=== PATIENT | male | born 1980 | race Caucasian/White ===

== ENCOUNTER 2017-01-05 10:59 | Emergency (ER) | payer OTHER ==
[~2017-01-05] VITALS: Ht 177.8 cm; Wt 97.7 kg
[~2017-01-05 10:59] MED LIST: ATEN50TA PO; CITA40TA13 PO; OMEP40CA3 PO; RNT300T PO
[2017-01-05 11:03] VITALS: BP 130/82; PULSE 79; RESP 10; O2SAT 99
--- NOTE | 2017-01-05 11:46 | ED.REPORT ---
HPI-Back Pain Under 40 Date of Service Jan 05, 2017 ED Provider: Yohannes Hobson PA-C Niko is a 36-year-old male presents with chief complaint of lower back pain. He reports a history of L3 4 5 fusion 7 months ago. He states that last night he was moving several boxes at home. he notices increased pain as well as shooting pains into his right leg this morning. Denies saddle anesthesia, bowel /bladder dysfunction. Denies fever, chills, diabetes, or transplant, immunosuppression, recent infection, IV drug use, cancer. Denies abdominal pain , urinary symptoms. Reports a history of Crohn's disease which limits his use of NSAIDs as well as hypertension, GERD. He is not taking anything for pain today. He has Percocet at home. Nursing Notes Stated Complaint: BACK PAIN Chief Complaint: Back Pain or Injury Nursing Notes Reviewed: Yes Allergies: Coded Allergies: codeine (Verified Allergy, Unknown, 04/16/15) Scheduled Atenolol (Atenolol) 50 Mg Tablet 50 MG PO DAILY Citalopram (Citalopram) 40 Mg Tablet 40 MG PO DAILY Omeprazole (Prilosec) 40 Mg Capsule.dr 40 MG PO DAILY Prednisone (PredniSONE) 20 Mg Tablet 40 MG PO DAILY Ranitidine (Zantac) 300 Mg Tab 300 MG PO DAILY Scheduled PRN Tramadol (Tramadol) 50 Mg Tablet 50-100 MG PO Q4H PRN PRN For Pain General Time Seen by MD: 11:16 Chief Complaint Lumbar pain Sudden in Onset?: No Past Medical History Past Medical History Crohn's disease Past Surgical History Hernia surgery Smoking History Former Smoker Social History Alcohol Use: "Social" Review of Systems Review of Systems Note: Negative unless stated otherwise in history of present illness Physical Exam General: Well appearing, well developed, well nourished, no acute distress. Head: Atraumatic, normocephalic. Eyes: No scleral icterus or injection. No discharge. Vision grossly intact. ENT: Voice clear, hearing grossly intact. Skin: Warm and dry. Back: Midline scar consistent with lumbar spine surgery. No redness, swelling, warmth. Very minor tenderness to palpation over left SI joint. No spinous process tenderness. Neurological: Normal gait, heel/toe walk, Grossly nonfocal. Psychological: alert and oriented. Speech appropriate, linear and logical. Behavior appropriate. Initial Vital Signs Vital Signs (First) Date Time Temp Pulse Resp B/P Pulse Ox O2 Delivery O2 Flow Rate FiO2 01/05/17 11:03 36.4 79 10 130/82 99 Room Air Initial VS: Reviewed, Vital signs normal Re-Eval/Medical Decision Med Decision/Clinical Course Otherwise healthy 36-year-old male presents with chief complaint low back pain. History of lumbar spinal surgery 7 months ago. Patient states he moved a lot of boxes last night and woke up this morning with pain in his lower back that radiates down his right leg which is aggravated by walking. History and physical are reassuring regarding epidural abscess, cauda equina syndrome, cancer. Neurological exam is normal. Advised acetaminophen, prescribed a small amount of tramadol and pulse of prednisone. Advised primary care follow- up, provided return precautions. Discharge & Departure Impression: Primary Impression: Low back pain Chronicity: chronic Back pain laterality: right Sciatica presence: with sciatica Sciatica laterality: sciatica of right side Qualified Code: M54.41 - Lumbago with sciatica, right side Disposition: Home All VS Reviewed: Yes Condition: Stable Patient Instructions: Acute Low Back Pain (ED) Additional Instructions: Evaluation in the emergency department for lower back pain. History and physical are reassuring that this is not an emergent neurological condition such as epidural abscess or cauda equina syndrome. History does not suggest that this is likely to be a spinal fracture. Your neurological examination is normal, indicating there is no damage to the nerves in your back. I see no indication to perform imaging tests at this time. Treatment is largely symptomatic. Rest is important, especially for the next couple of days, but avoid total bed rest. Reasonable activity as tolerated is the best. Apply ice to the affected area 4 times a day for 20 minutes over the next 24 hours. After that you will probably find warm compresses most helpful. The pain is best treated with 1000 mg of acetaminophen (Tylenol) every 6 hours. These drugs can be taken at the same time for more severe pain. I will prescribe you a small amount of tramadol to be taken for pain not controlled by the Tylenol. I also prescribed a short course of prednisone to reduce the inflammation around your spine, and reduce the pain in your leg. Most of all be patient: 70-90% of people with injuries presenting like yours will resolve within 7 weeks, even without treatment. Follow-up with your primary care provider in the next week or two to be sure your recovery is progressing as expected. Return the emergency department for new or worsening symptoms such as loss of bowel/bladder control, numbness between your legs, new weakness/numbness or high fever. Referrals: Daniel Springer MD (PCP) EDSupervising Provider for APC: Misael Gutiérrez MD copies to: Daniel Springer MD, Seth PA-C Jan 05, 2017 11:45
[2017-01-05] MEDS ORDERED: TRAM50TA2 PO (11:49)
[2017-01-05] MEDS ORDERED: PRE20 PO (11:50)
[2017-01-05 11:56] VITALS: BP 130/82; PULSE 79; RESP 10; O2SAT 99
== END 2017-01-05 11:56 | disposition home or self-care (01) ==
LOC: SED 10:59
DX: M54.41 Lumbago with sciatica, right side (principal); X50.9XXA Other and unspecified overexertion or strenuous movements or postures, initial encounter; Y93.89 Activity, other specified; Y92.019 Unspecified place in single-family (private) house as the place of occurrence of the external cause; Y99.8 Other external cause status; K21.9 Gastro-esophageal reflux disease without esophagitis; I10 Essential (primary) hypertension; Z98.1 Arthrodesis status; Z87.891 Personal history of nicotine dependence; Z88.5 Allergy status to narcotic agent